=== PATIENT | male | born 1985 | race Caucasian/White ===

== ENCOUNTER 2022-12-13 02:16 | Emergency (ER) | payer SELFPAY ==
[~2022-12-13] VITALS: Ht 167.6 cm; Wt 72.6 kg
--- NOTE | 2022-12-13 02:23 | NUR ---
OFFLOADED TO BED 06 ACLS.
[2022-12-13 02:26] VITALS: BP 154/96
[2022-12-13] MEDS ORDERED: NACL 0.9% 1,000 ML IV ONE (02:30)
--- NOTE | 2022-12-13 02:33 | NUR ---
LAB AT BEDSIDE.
--- NOTE | 2022-12-13 02:33 | NUR ---
37 YO M BIBA FROM HOME WITH C/C OF POSSIBLE TONIC CLONIC SEIZURE LASTING 30 SECONDS WITNESSED BY ABOUT 30MINS AGO. PER EMS NO ORAL TRAUMA, NO URINARY INCONTINENCE. REPORTS PT WAS DIAPHORETIC, SLOW TO RESPOND, AND CYANOTIC LIPS. PT DENIES FEVER, COUGH. DENIES DRUG USE. HX:RT KNEE PAIN ? RX:TRAMADOL NKA
[2022-12-13] MEDS ORDERED: ONDANSETRON 4 MG/2 ML VIAL IVP ONE (02:35)
[2022-12-13 02:40] LABS: BASOPHILS # (AUTO) 0.1 K/uL (0.00-0.22); BASOPHILS % (AUTO) 0.5 % (0.0-2.0); EOSINOPHILS # (AUTO) 0.1 K/uL (0-0.4); EOSINOPHILS % (AUTO) 1.3 % (0.0-4.0); HEMATOCRIT 40.4 % (36-52); HEMOGLOBIN 13.6 g/dL (12.0-18.0); LYMPHOCYTES % (AUTO) 40.1 % (20.5-51.1); MEAN CORPUSCULAR HEMOGLOBIN 30 pg (27-31); MEAN CORPUSCULAR HGB CONC 34 g/dL (33-37); MEAN CORPUSCULAR VOLUME 88.5 fL (80-94); MONOCYTES % (AUTO) 9.5 % (1.7-9.3); NEUTROPHILS # (AUTO) 4.9 K/uL (1.8-7.7); NEUTROPHILS % (AUTO) 48.6 % (42.2-75.2); PLATELET COUNT (AUTO) 183 K/uL (140-450); RED BLOOD CELL COUNT(AUTO) 4.56 MIL/uL (4.20-6.10); RED CELL DISTRIBUTION WIDTH 12.9 % (11.6-13.7)
--- NOTE | 2022-12-13 02:47 | NUR ---
pt to CT
--- NOTE | 2022-12-13 02:49 | NUR ---
37 Y/O M bib amr appears diaphoretic from home. called 911 and stated she woke up to her shaking and appeared like a tonic clonic seizure x30 seconds. pt is A&Ox4, skin intact, ambulatory and stated has nausea but denied vd. pt and denies any history of seizures pmh- pt denies, NKA
--- NOTE | 2022-12-13 03:02 | NUR ---
PT RETURN FROM CT
[2022-12-13 03:05] LABS: ALBUMIN 4.2 g/dL (3.4-5.0); ASPARTATE AMINOTRANSFERASE 41 U/L (15-37); CHLORIDE 99 mmol/L (98-107); CREATININE 1.2 mg/dL (0.6-1.3); GFR ARICAN-AMERICAN 87 mL/min (>90); GLUCOSE 138 mg/dL (74-106); LIPASE 42 U/L (73-393); SODIUM SERUM 137 mmol/L (136-145); TOTAL BILIRUBIN 0.9 mg/dL (0.0-1.0); UREA NITROGEN, BLOOD 9 mg/dL (7-18)
[2022-12-13 03:08] LABS: MAGNESIUM 1.9 mg/dL (1.8-2.4)
[2022-12-13] MEDS ORDERED: POTASSIUM CHLORIDE 10 MEQ TABER PO ONE ×2 (03:50→04:33)
[2022-12-13 05:36] VITALS: BP 136/92
--- NOTE | 2022-12-13 05:36 | NUR ---
Patient discharged with v/s stable. Written and verbal after care instructions given and explained. Patient verbalized understanding. Ambulatory with by . All questions addressed prior to discharge. Advised to follow up with PMD.
== END 2022-12-13 05:36 | disposition home or self-care (01) ==
LOC: MED 02:16
DX: E87.6 Hypokalemia (principal)
CPT/HCPCS: 36415; 70450; 71045; 80053; 82550; 82553; 83690; 83735; 84100; 84484; 85025; 93005; 96361; 96374; 99285; J2405; J7030; Q0092

== ENCOUNTER 2023-06-09 21:47 | Inpatient (IN) | payer MEDICAID ==
[~2023-06-09] VITALS: Ht 167.6 cm; Wt 63.5 kg
[2023-06-09 21:47] VITALS: BP 145/89; PULSE 132; RESP 18; TEMP 97.8; O2SAT 99
[2023-06-09] MEDS ORDERED: NACL 0.9% 1,000 ML IV ONE ×2 (22:05→23:50)
[2023-06-09 23:20] LABS: BASOPHILS # (AUTO) 0.1 K/uL (0.00-0.22); BASOPHILS % (AUTO) 0.8 % (0.0-2.0); EOSINOPHILS # (AUTO) 0.1 K/uL (0-0.4); EOSINOPHILS % (AUTO) 1.1 % (0.0-4.0); HEMATOCRIT 37.9 % (36-52); HEMOGLOBIN 12.8 g/dL (12.0-18.0); LYMPHOCYTES # (AUTO) 3.1 K/uL (2.0-11.5); LYMPHOCYTES % (AUTO) 42.8 % (20.5-51.1); MEAN CORPUSCULAR HEMOGLOBIN 30 pg (27-31); MEAN CORPUSCULAR HGB CONC 34 g/dL (33-37); MONOCYTES # (AUTO) 0.7 K/uL (0.8-1.0); MONOCYTES % (AUTO) 9.7 % (1.7-9.3); NEUTROPHILS # (AUTO) 3.3 K/uL (1.8-7.7); NEUTROPHILS % (AUTO) 45.6 % (42.2-75.2); PLATELET COUNT (AUTO) 178 K/uL (140-450); RED BLOOD CELL COUNT(AUTO) 4.27 MIL/uL (4.20-6.10); RED CELL DISTRIBUTION WIDTH 13.6 % (11.6-13.7); WHITE BLOOD COUNT (AUTO) 7.2 K/uL (4.8-10.8)
[2023-06-09 23:29] LABS: APPEARANCE,URINE CLEAR (CLEAR); BILIRUBIN,URINE NEGATIVE (NEGATIVE); BLOOD, URINE TRACE-I (NEGATIVE); COLOR,URINE YELLOW (YELLOW); LEUKOCYTE ESTERASE ,URINE NEGATIVE (NEGATIVE); NITRITE, URINE NEGATIVE (NEGATIVE); PROTEIN,URINE NEGATIVE (NEGATIVE); UGLUCOSE NEGATIVE (NEGATIVE); UROBILINOGEN,URINE 0.2 EU/dL (0.2 - 1)
[2023-06-09 23:36] LABS: ALANINE AMINOTRANSFERASE 80 U/L (12-78); ALBUMIN 3.6 g/dL (3.4-5.0); ALCOHOL, BLOOD < 3 mg/dL (<10); ALKALINE PHOSPHATASE 92 U/L (50-136); ANION GAP 12.8 (8-16); ASPARTATE AMINOTRANSFERASE 42 U/L (15-37); CALCIUM 7.9 mg/dL (8.5-10.1); CARBON DIOXIDE 27.4 mmol/L (21-32); CHLORIDE 101 mmol/L (98-107); CREATININE 1.2 mg/dL (0.6-1.3); GFR ARICAN-AMERICAN 87 mL/min (>90); GFR NON ARICAN-AMERICAN 72 mL/min (>90); GLUCOSE 129 mg/dL (74-106); POTASSIUM 3.2 mmol/L (3.5-5.1); SODIUM SERUM 138 mmol/L (136-145); TOTAL BILIRUBIN 0.5 mg/dL (0.0-1.0); TOTAL PROTEIN, SERUM 6.9 g/dL (6.4-8.2); UREA NITROGEN, BLOOD 16 mg/dL (7-18)
[2023-06-09 23:39] LABS: SALICYLATE < 2.8 mg/dL (2.8-20.0)
[2023-06-09 23:40] LABS: ACETAMINOPHEN < 0.5 ug/ml (10-30)
[2023-06-09 23:44] LABS: AMPHETAMINE, URINE NEGATIVE ng/ml (NEG <=1000); BARBITURATE, URINE NEGATIVE ng/ml (NEG <=200); BENZODIAZEPINE, URINE NEGATIVE ng/mL (NEG <=200); CANNABINOID, URINE NEGATIVE ng/mL (NEG <=50); COCAINE, URINE NEGATIVE ng/mL (NEG <=300); OPIATE, URINE NEGATIVE ng/mL (NEG <=2000); PHENCYCLIDINE SCREEN,URINE NEGATIVE ng/mL (NEG <=25)
[2023-06-09 23:46] LABS: BACTERIA,URINE 10-30 (MOD) /HPF (None Seen); MUCUS,URINE 1+ /LPF (None Seen); RBC,URINE 0-5 /HPF (0-5); SQUAMOUS EPITHELIAL CELL,UR 0-3 (FEW) /LPF (0-3 (FEW)); WBC,URINE 0-5 /HPF (0-5)
[2023-06-09] MEDS ORDERED: cefTRIAXone 2,000 MG in DEXTROSE 5% 100 ML IV ONE (23:50)
[2023-06-09] MEDS ORDERED: cefTRIAXone 2,000 MG VIAL ONE (23:53)
[2023-06-10] MEDS ORDERED: HYDROcodone/APAP 7.5/325 MG 1 TAB PO PRN (04:25)
[2023-06-10] MEDS ORDERED: NACL 0.9% 1,000 ML IV SCH ×2 (04:25→08:20)
[2023-06-10] MEDS ORDERED: ZOLPIDEM 5 MG TAB PO PRN (04:25)
[2023-06-10] MEDS ORDERED: ACETAMINOPHEN 325 MG TAB PO PRN (04:25)
[2023-06-10] MEDS ORDERED: guaiFENesin DM 200/20 MG-10 ML 10 ML UDC PO PRN (04:25)
[2023-06-10] MEDS ORDERED: ONDANSETRON 4 MG/2 ML VIAL IM/IVP PRN (04:25)
[2023-06-10] MEDS ORDERED: POTASSIUM CHLORIDE 10 MEQ TABER PO PRN (04:25)
[2023-06-10] MEDS ORDERED: DOCUSATE SODIUM 100 MG GELCAP PO PRN (04:25)
[2023-06-10 05:28] VITALS: BP 110/74; PULSE 102; RESP 18; O2SAT 98
[2023-06-10 05:58] LABS: LACTIC ACID 1.8 mmol/L (0.4-2.0)
[2023-06-10] MEDS ORDERED: PANTOPRAZOLE 40 MG TABEC PO SCH (09:00)
[2023-06-10 10:10] LABS: ALBUMIN 3.6 g/dL (3.4-5.0); ANION GAP 11.2 (8-16); CALCIUM 8.1 mg/dL (8.5-10.1); CARBON DIOXIDE 28.6 mmol/L (21-32); CREATININE 0.9 mg/dL (0.6-1.3); POTASSIUM 3.8 mmol/L (3.5-5.1); TOTAL BILIRUBIN 0.7 mg/dL (0.0-1.0); TOTAL PROTEIN, SERUM 7.2 g/dL (6.4-8.2)
== END 2023-06-10 14:43 | disposition left against medical advice (07) | DRG 52 ==
LOC: MED 21:47 → MTU 06-10 04:24
PROVIDERS: ADMIT Student in an Organized Health Care Education/Training Program; ATTEND Student in an Organized Health Care Education/Training Program
DX: G93.41 Metabolic encephalopathy (principal); R74.02 Elevation of levels of lactic acid dehydrogenase [LDH]
CPT/HCPCS: 36415; 70450; 71045; 80053; 80305; 81001; 82140; 83605; 84484; 85025; 87040; 87086; 93005; 96361; 96365; 99285; G0480; G0482; J0696; J7060